=== PATIENT | male | born 1940 | race African-American/Black ===

== ENCOUNTER → 2016-06-21 | Outpatient (CLI) | payer MEDICARE, OTHER ==
[2015-04-15 11:00] VITALS: BP 158/69
[~2016-06-21] MED LIST: AMLO1TAB4 PO; ASPI325T4 PO; BRIM5DRO3 RIGHTEYE; CHOL20003 PO; CYAN10002 IM; CYCL10TA2 PO; DORZ10DR7 EACHEYE; GADOBUTROL 10 MMOL/10 ML VIAL IV ONE; HYDR-2666 PO; LATA2.5D3 RIGHTEYE; LEVO125T PO; METO25TA9 PO; OMEP40CA5 PO; VITA400C36 PO
--- NOTE | 2016-06-21 10:01 | KCIC ---
PROCEDURE Cervical spine radiographs. HISTORY Cervical stenosis, radiculopathy, previous fusion, bilateral upper extremity numbness in the last 2-3 months COMPARISON July 01, 2015 FINDINGS Four views of the cervical spine are submitted. There is again anterior metallic plate and screws at C5, C6, C7. There are interbody spacers at C5-C6 and C6-7. Cervical vertebral body stature and AP alignment are unchanged. There is again mild degenerative disc disease and spondylosis at C3-4, mild spondylosis C4-5. There is multilevel cervical facet degenerative change. IMPRESSION 1. There is intact anterior fusion hardware C5, C6, C7. There is mild degenerative disc disease and spondylosis at C3-4, mild spondylosis C4-5. There is multilevel cervical facet degenerative change. Electronically signed by: Roshan Torres MD (Jun 21, 2016 09:58:26)
--- NOTE | 2016-06-21 11:47 | KCIC ---
PROCEDURE MRI cervical spine without and with contrast HISTORY Cervical stenosis, radiculopathy, previous fusion March 2015, return of bilateral upper extremity numbness in the last 2-3 months TECHNIQUE Multiplanar, multi sequential pre and post contrast MR imaging was performed of the cervical spine. Contrast: 9 cc Gadavist COMPARISON May 28, 2014 FINDINGS There is some motion degradation. There has been interval anterior cervical fusion at C5, C6, C7, interbody fusion not apparent at these levels. Cervical cord caliber is within normal limits, no significant focal signal signal abnormality or enhancement. Cervical vertebral body stature is maintained. There is negligible anterior spondylolisthesis at C7-T1. There is no significant abnormality of the cervical medullary junction. There is again moderate degenerative disc disease at C3-C4, mild disc desiccation C4-C5. There is no significant focal marrow edema. C2-3: Spinal canal and neural foramina are adequate. C3-4: There is again disc osteophyte complex and bulge/protrusion with effacement of ventral subarachnoid space, central canal narrowed to approximately 8 millimeters. There is uncovertebral degenerative change. There is again fairly severe neural foramina compromise bilaterally. C4-5: There is again broad posterior bulge/protrusion with effacement of ventral subarachnoid space, central canal narrowed to approximately 7 millimeters. There is again uncovertebral degenerative change bilaterally. There is facet degenerative change greater on the left. There is fairly severe neural foramina compromise bilaterally. C5-C6: Previously seen extrusion is no longer visualized. There is residual mild narrowing of the central canal on the order of 9 millimeters. Neural foramina are adequate. C6-7: There is residual posterior osteophytic bridging. Central canal is minimally narrowed to approximately 8 millimeters, previously a greater degree of spinal stenosis present. Right neural foramen is adequate. There is suspected mild to moderate narrowing of the left neural foramen from osteophytes. C7-T1: Spinal canal is adequate. There is facet and uncovertebral degenerative change. There is likely mild to moderate right and moderate to severe left neural foramina compromise. IMPRESSION 1. Comparing with the 2014 exam, there has been anterior cervical fusion C5, C6, C7. There is decreased mild spinal stenosis at these levels. There is again spinal stenosis on the order of 7 millimeters at C4-5 and to a lesser degree at C3-4. 2. There is multilevel cervical neural foramina compromise due to facet and uncovertebral degenerative change including more significant narrowing bilaterally at C3-4 and C4-5, to a lesser degree left greater than right at C7-T1. Electronically signed by: Roshan Torres MD (Jun 21, 2016 11:46:22)
== END | disposition home or self-care (01) ==
LOC: KCIC MRI 08:59
PROVIDERS: ATTEND Neurological Surgery
DX: M48.02 Spinal stenosis, cervical region (principal); M43.22 Fusion of spine, cervical region; M47.892 Other spondylosis, cervical region; M50.11 Cervical disc disorder with radiculopathy, high cervical region; M25.78 Osteophyte, vertebrae
CPT/HCPCS: 72040; 72156; 82565; A9585

== ENCOUNTER → 2018-10-31 | Outpatient (CLI) | payer MEDICARE, OTHER ==
[2015-04-15 11:00] VITALS: BP 158/69
[~2018-10-31] MED LIST changes: -ASPI325T4 PO; +ASPI325T8 PO; -CHOL20003 PO; +CHOL20009 PO; -GADOBUTROL 10 MMOL/10 ML VIAL IV ONE; -HYDR-2666 PO; +HYDR-2761 PO; +METO-239 PO; -METO25TA9 PO
[2018-10-31 15:00] LABS: FREE T4 1.16 ng/dL (0.76-1.46); THYROID STIM HORMONE (TSH) 1.167 uIU/mL (0.358-3.74)
--- NOTE | 2018-10-31 16:46 | RAD ---
CLINICAL HISTORY: Hypothyroidism COMPARISON: None available. TECHNIQUE: Ultrasound examination of the thyroid gland was performed FINDINGS: Right thyroid measures 2.7 x 1.4 x 1.5 cm. The left thyroid measures 2.1 x 1 x 1 cm. Isthmus measures 0.5 cm in thickness. A 1.6 x 1.2 x 1.3 cm hypoechoic solid right lower pole thyroid nodule is seen. This is a tiRADS 4 lesion. A 0.8 x 0.5 x 0.8 cm hypoechoic isthmus nodule is seen. There is no regional cervical lymphadenopathy. IMPRESSION: A 1.6 x 1.2 x 1.3 cm hypoechoic solid right lower pole thyroid nodule is seen. This is a tiRADS 4 lesion. Given size greater than 1.5 cm, FNA is recommended if not previously performed. Electronically signed by: Tyler Baer MD (10/31/2018 4:43 PM) [facility]
== END | disposition home or self-care (01) ==
LOC: US 14:51
PROVIDERS: ATTEND Internal Medicine Endocrinology, Diabetes & Metabolism
DX: E04.1 Nontoxic single thyroid nodule (principal)
CPT/HCPCS: 36415; 76536; 84439; 84443